=== PATIENT | female | born 1990 | race Caucasian/White ===

== ENCOUNTER 2017-12-04 11:37 | Emergency (ER) | payer OTHER, SELFPAY ==
[2017-12-04 11:37] VITALS: BP 135/74; PULSE 103; RESP 16; TEMP 36.8; O2SAT 100; BMI 29.2
--- NOTE | 2017-12-04 12:40 | ED.VISSUMM ---
- ER Visit Summary Date of Service: 12/04/17 Chief Complaint: Vaginal bleeding History of Present Illness: The patient is a 27 F presenting with vaginal bleeding ?22 days. She states that she does not have a history of irregular periods. States she has had bilateral fallopian tubes removed approximately a year ago. She has had mild dizziness with no syncope. She has mild cramping. Denies other complaints. Physical Examination: Vitals are stable. Patient is afebrile. Alert no acute distress. HEENT exam is unremarkable. Neck is supple. Lungs are clear and equal bilaterally. Heart is regular rate and rhythm. Abdomen is soft nontender nondistended. No rebound or guarding : Small amount of blood in the vaginal vault. This is cleared with cotton tip swab. There is no active bleeding. Extremities are unremarkable. Skin is warm and dry. No focal neurologic deficit. Remainder of exam is unremarkable. Emergency Department Course and Treatment: CBC is normal, hemoglobin 15.8. HCG negative. Orthostatics are negative. Patient is advised to follow-up with her DOCTOR OF NURSE ANESTHESIA. Advised return to ED for worsening complaints. Disposition: Discharge home Impression: Dysfunctional uterine bleeding This note was generated with [email or web address] dictation software. It may contain incorrect words, spelling, and punctuation that were not noted in review of the chart prior to signing ED Disposition - Plan for ED Patient: Chief Complaint: Vag Bleeding Referrals: Nikia Gibbs DO [Primary Care Provider] -
[2017-12-04 13:08] VITALS: BP 115/72; BP 116/69; BP 121/75; PULSE 74; PULSE 81; PULSE 82
[2017-12-04 13:22] LABS: Absolute Lymphocyte Count 2.05 X10^3/ul (0.83-4.51); Absolute Neutrophil Count 4.4 X10^3/uL (2.0-7.7); Basophil# 0.03 X10^3/uL; Basophil% 0.4 % (0-1); Eosinophil# 0.07 X10^3/uL; Hemoglobin 15.8 g/dl (12.0-15.0); Lymphocyte # 2.05 X10^3/ul (4.0); Lymphocyte % 29.4 % (19-41); Mean Corp Hgb Conc 33.6 g/gl (32-36); Mean Corpuscular Hgb 28.6 pg (27.0-32.0); Mean Platelet Vol. 11.6 fl (6.2-12.0); Monocyte# 0.47 X10^3/uL; Monocyte% 6.7 % (0-10); Neutrophil # 4.35 X10^3/uL (2.7-7.7); Neutrophil % 62.4 % (47-70); Platelet Count 235 K/mm3 (150-450); RBC Distribution Width CV 13.3 % (11.6-14.6); RBC Distribution Width SD 41.5 fl (35.1-43.9); Red Blood Count 5.53 M/mm3 (4.2-5.4)
[2017-12-04 13:24] LABS: POSITIVE COUNT NO; POSITIVE DIFFERENTIAL NO; POSITIVE MORPHOLOGY NO
[2017-12-04 13:40] LABS: Pregnancy, Serum, hCG Quali. NEGATIVE Negative (0-9 Nonpreg)
[2017-12-04 13:43] VITALS: BP 126/81; PULSE 84; RESP 16; O2SAT 97
--- NOTE | 2017-12-04 14:06 | ED.DEP ---
ED Disposition - Plan for ED Patient: Chief Complaint: Vag Bleeding Instructions: ED Bleed Irregular Vaginal Referrals: Nikia Gibbs DO [Primary Care Provider] - Robert Isaac MD [STAFF PHYSICIAN] -
[2017-12-04 14:19] VITALS: PULSE 87; RESP 14; O2SAT 99
== END 2017-12-04 14:21 | disposition home or self-care (01) ==
PROVIDERS: Emergency Provider Emergency Medicine; Family Provider Family Medicine; PCP Family Medicine
DX: N93.8 Other specified abnormal uterine and vaginal bleeding (principal)
CPT/HCPCS: 36415; 84703; 85025; 99283